=== PATIENT | male | born 1950 | race Caucasian/White ===

== ENCOUNTER → 2018-10-15 15:19 | Outpatient (CLI) | payer MEDICARE, SELFPAY ==
--- NOTE | 2018-10-15 15:27 | CT_ITS ---
STUDY: LOW DOSE CT LUNG CANCER SCREENING REASON FOR EXAM: Male, 68 years old. Previous smoker, quit 1 year ago, 90 pack-year history RADIATION DOSAGE (If Supplied By Facility): CTDIvol = ( 4.02 ) mGy, DLP = ( 157.53 ) mGycm TECHNIQUE: No contrast was administered. Low dose technique was utilized (average mAS-38 and kVp 120). 1.25 mm axial source images with a slice interval of 1.25-mm were reconstructed in lung windows. 2.5 mm axial source images with a slice interval of 2.5-mm were reconstructed in lung windows. 5.0 mm axial source images with a slice interval of 5.0-mm were reconstructed in soft tissue windows. Nodule measured using lung windows on PACS and/or independent workstation with automated measurement of minimum and maximum diameter. Nodule measurement reported as average diameter rounded to the nearest whole number. Growth is defined as an increase ins size of greater than 1.5 mm. COMPARISON: None. NODULES: Total lung nodules (excluding granulomas): 0 Emphysema: Not significant Endobronchial lesion: None Aorta: Normal caliber with mild atherosclerosis. Coronary arteries: None Heart: Normal size Pulmonary artery: Unremarkable for unopacified technique Mediastinal nodes: No adenopathy. Other chest and abdominal findings: Intermediate density rounded lesion of the right posterior upper abdomen measures 6.1 cm with peripheral eggshell type calcifications. This could be arising from the right adrenal gland or superior aspect of the right kidney. CT/Low Dose CT Lung Screening IMPRESSION: 1. Lung-RADS category 1 - Continue annual screening with LDCT in 12 months. 2. 6.1 cm mass of the right upper abdomen of unknown source or significance. If no comparison studies of the abdomen available, recommend additional evaluation with renal protocol CT/MRI. IMPORTANT NOTES FOR USE: ACR Lung-RADS Version 1.0 Assessment Categories Release Date: August 29, 2013 Category: Coded 0-4 bases on nodule(s) with highest degree of suspicion. Negative screen is defined as categories 1 and 2; a positive screen is defined as categories 3 and 4. Category 3 and 4A nodules that are unchanged on interval CT should be coded as category 2, and individuals returned to screening in 12 months. Category 4X: Category 3 or 4 nodules with additional imaging findings that increase the suspicion of lung cancer, such as spiculation, GGN that doubles in size in 1 year, enlarged lymph notes, etc. Category Modifiers: S (significant finding unrelated to lung cancer) and C (prior history of treated lung cancer) may be added to the 0-4 Lung-RADS Electronically Signed: Sudarshan Adams MD at 19:47 EDT , Service support ,
== END ==
PROVIDERS: Family Provider Nurse Practitioner Family; PCP Nurse Practitioner Family; Referring Provider Nurse Practitioner Family; Visit Provider Nurse Practitioner Family
DX: Z87.891 Personal history of nicotine dependence (principal)
CPT/HCPCS: G0297

== ENCOUNTER → 2018-10-26 08:00 | Outpatient (CLI) | payer MEDICARE, SELFPAY ==
[2018-10-26 08:33] LABS: Anion Gap 6 (5-15); BUN 15 mg/dL (7-18); BUN/Creat Ratio 13.6 RATIO (10-20); Chloride 106 mmol/L (98-107); EST Glomerular Filtration Rate 71 mL/min (>60); Est Glom Filt Rate - Afr Amer 86 mL/min (>60); Glucose 173 mg/dL (74-106); Potassium 4.2 mmol/L (3.5-5.1); Sodium Level 138 mmol/L (136-145)
--- NOTE | 2018-10-26 12:10 | CT_ITS ---
STUDY: CT ABDOMEN AND PELVIS WITH CONTRAST REASON FOR EXAM: Male, 68 years old. Abdominal mass RADIATION DOSAGE (If Supplied By Facility): CTDIvol = ( 18.72 ) mGy, DLP = ( 1332.11 ) mGycm TECHNIQUE: Transaxial images were obtained from the dome of the diaphragm to the symphysis pubis with oral contrast. 100ML IV/Oral Isovue 300 was administered. Sagittal and coronal images were reconstructed. Individualized dose optimization techniques were used for this CT. COMPARISON: CT from 10/15/2018 FINDINGS: The visualized lung bases are unremarkable. The visualized portions of the heart are within normal limits. Normal liver. Normal gallbladder and extrahepatic biliary system. Normal spleen. Normal pancreas. There is a mixed density mass arising from the right renal gland (as seen on coronal image 93). The mass measures 6.8 x 7.9 x 6.2 cm and is composed of both fat and soft tissue density. Surrounding the soft tissue density there is a thin periphery of calcification as well as some speckled calcification within the fat portion. Normal right kidney. Subcentimeter simple cyst of the upper left kidney as seen on image 41. No hydronephrosis. Normal visualized stomach. Normal small intestine. There are multiple colonic diverticula consistent with diverticulosis. The appendix is visualized and appears normal. There is diffuse atherosclerotic calcification of the abdominal aorta, without a demonstrated aneurysm. Normal inferior vena cava. Normal retroperitoneum. Normal urinary bladder. Prostate gland is enlarged. There is a left-sided inguinal hernia containing adipose tissue. There are diffuse degenerative changes of the visualized lumbar spine. CT/Abdomen/Pelvis WITH Contrast IMPRESSION: 1. Mixed density mass arising from the right adrenal gland (correlating to recent CT findings) compatible with myelolipoma, likely with component of old hemorrhage/blood product. Lesion is considered benign. 2. Prostamegaly. 3. Small fat-containing left inguinal hernia. Electronically Signed: Sudarshan Adams MD at 13:36 EDT , Service support ,
== END ==
PROVIDERS: Family Provider Nurse Practitioner Family; PCP Nurse Practitioner Family; Referring Provider Family Medicine; Visit Provider Family Medicine
DX: R19.00 Intra-abdominal and pelvic swelling, mass and lump, unspecified site (principal)
CPT/HCPCS: 36415; 74177; 80048; Q9967

== ENCOUNTER → 2020-04-16 14:36 | Outpatient (CLI) | payer MEDICARE, SELFPAY ==
--- NOTE | 2020-04-16 14:42 | CT_ITS ---
STUDY: CT ABDOMEN AND PELVIS WITH CONTRAST REASON FOR EXAM: Male, 69 years old. Right flank pain, hx adrenal mass RADIATION DOSAGE (If Supplied By Facility): CTDIvol = ( 17.02 ) mGy, DLP = ( 1201.41 ) mGycm TECHNIQUE: Transaxial images were obtained from the dome of the diaphragm to the symphysis pubis with oral contrast. Oral and amp; IV Readi-CAT and amp; 100mL Isovue-300 was administered. Sagittal and coronal images were reconstructed. Individualized dose optimization techniques were used for this CT. COMPARISON: Comparison is made with prior study dated 10/26/2018. FINDINGS: The visualized lung bases are unremarkable. Calcification of the coronary arteries. There is decreased attenuation of the liver consistent with steatosis. Borderline hepatomegaly. Normal gallbladder and extrahepatic biliary system. Normal spleen. Normal pancreas. Stable 5.9 cm x 5.4 cm x 6.2 cm mass in the right adrenal gland with rim-like calcification. This is unchanged. Normal right kidney. Normal left kidney. Normal visualized stomach. Normal small intestine. There are multiple colonic diverticula consistent with diverticulosis. The appendix is visualized and appears normal. There is scattered atherosclerotic calcification of the abdominal aorta, without a demonstrated aneurysm. Normal inferior vena cava. Normal retroperitoneum. Normal urinary bladder. There is enlargement of the prostate gland. It measures 5.3 cm x 4.7 cm. This causes indentation at the bladder base worse on the left side of the base of the bladder. Normal abdominal wall. There are diffuse degenerative changes of the visualized lumbar spine. CT/Abdomen/Pelvis WITH Contrast IMPRESSION: Stable right adrenal mass with peripheral calcification. Borderline hepatomegaly with diffuse fatty infiltration of the liver. Stable examination. Electronically Signed: Andrés Schmitt, at 15:27 EST , Service support ,
[2020-04-16 14:56] LABS: CREATININE FINGERSTICK 1.5 mg/dL (0.70-1.30)
== END ==
PROVIDERS: PCP Nurse Practitioner Family; Referring Provider Nurse Practitioner Family; Visit Provider Nurse Practitioner Family
DX: R10.9 Unspecified abdominal pain (principal); E27.8 Other specified disorders of adrenal gland
CPT/HCPCS: 74177; Q9967

== ENCOUNTER 2020-06-10 18:06 | Observation (INO) | payer MEDICARE, SELFPAY ==
[2020-06-10] VITALS (7 sets, daily range): BP systolic 139–172; BP diastolic 66–91; PULSE 82–104; RESP 16–18; TEMP 36.1–36.9; O2SAT 96–98; BMI 38.2; BMI 37.0; BMI 37.1
--- NOTE | 2020-06-10 18:21 | EKG12_ITS ---
Test Reason : CP Blood Pressure : / mmHG Vent. Rate : 097 BPM Atrial Rate : 097 BPM P-R Int : 198 ms QRS Dur : 102 ms QT Int : 332 ms P-R-T Axes : 027 032 100 degrees QTc Int : 421 ms Normal sinus rhythm Nonspecific ST and T wave abnormality Abnormal ECG Confirmed by MATILDE SANTO, GENTRY ([id number]), telegraph editor DYLON LEON ([id number]) on 06/12/2020 8:25:43 AM Referred By: ANDRIA/KEVYN Confirmed By:GENTRY CLAYTON MD
--- NOTE | 2020-06-10 18:21 | ED.VIS.GEN ---
History of Present Illness Chief Complaint: Chest Pain Informant: Patient, Family Narrative: 70-year-old male with history of diabetes, hypertension, hyperlipidemia, obesity, distant history of smoking 3 years ago presenting with chest pain which feels like pressure. He states that this week he has had some intermittent chest pains which feel like pressure when last for different amounts of time. Today he states he had chest pain since about 3 PM he states he was a little bit nauseous and had dyspepsia. Has not had fever, cough. He has no body aches or chills. He states his last stress test was over 20 years ago. Past Medical History - Allergies and Home Meds Allergies/Adverse Reactions: Allergies No Known Allergies Allergy (Verified 06/10/20 18:06) Past Medical History: - - Diabetes, hypertension, hyperlipidemia, BPH Lives: Spouse/ Significant Other Smoking Status: Former smoker Alcohol: None Drugs: None Review of Systems General: Denies: Chills, Fever, Sweats Eyes: Denies: Visual changes - bilaterally, Diplopia ENT: Denies: Rhinorrhea, Sore throat Cardiovascular: Reports: Chest pain. Denies: Palpitations, Heart racing Respiratory: Reports: Dyspnea. Denies: Cough, Sputum Gastrointestinal: Denies: Abdominal pain, Nausea Genitourinary: Denies: Dysuria, Hematuria Musculoskeletal: Denies: Myalgias, Arthralgias Skin: Denies: Rash, Abscess Neurological: Denies: Headache, Weakness Psych: Denies: Depression, Anxiety Physical Exam Vital Signs/Narrative: Vital Signs Temp Pulse Resp BP Pulse Ox 06/10/20 18:07 97.0 F L 104 H 17 172/91 H 96 Inital Vital Signs reviewed: Yes General: Obese, No Acute Distress Head: Normocephalic, Atraumatic Eyes: Perrl, EOMI ENT: Moist mucous membranes. Negative for: Nasal congestion Cardiovascular: Regular rate, Regular rhythm Respiratory: No distress, CTA bilaterally, Chest nontender Extremities: Nontender, No edema Skin: Normal color, No rash. Negative for: Cyanosis, Diaphoresis Neurological: Alert, Oriented x3, Cranial nerves II-XII grossly intact Psychological: Normal affect, Normal Mood Diagnostic/Tx/Re-eval - Rhythm Strip Rhythm Strip: Sinus Rhythm Rate: 97 - EKG Initial EKG Interpretation: Sinus Rhythm, Inverted T-Waves - V5, V6 - Medical Decision Making Patient presenting with chest pressure which has been intermittent throughout the week and has now been going on since about 3 PM. He describes it as about 5 of 10. He states he did get nauseous and his states he looked flushed. Patient's heart score is 7. Patient had EKG which was sinus rhythm with T wave inversions in V5 and V6 without a comparison EKG as interpreted by myself. Chest x-ray is negative for acute cardiopulmonary process as interpreted by myself. CBC, BMP are unremarkable. Troponin is negative. D-dimer is negative. Given patient's elevated heart score he will be admitted to the hospital for cardiac evaluation. Impression: 1. Chest pain ED Disposition - Plan for ED Patient:
[2020-06-10] MEDS: Aspirin 81 MG TAB.CHEW 324 MG PO (18:27)
--- NOTE | 2020-06-10 18:27 | RAD_ITS ---
STUDY: X-RAY CHEST REASON FOR EXAM: Male, 70 years old. CHEST HEAVINESS; LEFT SIDED CHEST PAIN AND PAIN DOWN LEFT ARM TECHNIQUE: AP COMPARISON: None. FINDINGS: EKG leads project over the chest. The lungs are clear and expanded. There is no demonstrated pleural abnormality. Normal size heart. Normal mediastinum and elio. Normal visualized pulmonary arteries. Normal visualized aortic arch and descending thoracic aorta. Normal visualized thoracic spine. Normal visualized ribs, clavicles, and shoulders. There is no demonstrated abnormality of the visualized soft tissue structures of the upper abdomen. RAD/Chest 1 View (Portable) IMPRESSION: Nonacute portable x-ray examination of the chest. Electronically Signed: Sudarshan Adams MD ([place]) at 18:47 EST , Service support ,
[2020-06-10 18:29] LABS: Absolute Lymphocyte Count 2.98 X10^3/uL (0.83-4.51); Absolute Neutrophil Count 5.1 X10^3/uL (2.0-7.7); Basophil# 0.07 X10^3/uL; Basophil% 0.8 % (0-1); Eosinophil# 0.33 X10^3/uL; Eosinophils% 3.6 % (0-5); Hematocrit 43.9 % (40-54); Hemoglobin 15.2 g/dL (13.0-16.5); Lymphocyte # 2.98 X10^3/ul (4.0); Lymphocyte % 32.5 % (19-41); Mean Corp Hgb Conc 34.6 g/dL (32-36); Mean Corpuscular Hgb 32.8 pg (27.0-32.0); Mean Corpuscular Volume 94.6 fL (80-94); Mean Platelet Vol. 9.6 fl (6.2-12.0); Monocyte# 0.72 X10^3/uL; Monocyte% 7.8 % (0-10); NRBC Flagged by Analyzer 0 % (0-5); Neutrophil # 5.05 X10^3/uL (2.7-7.7); Platelet Count 273 K/mm3 (150-450); RBC Distribution Width CV 12.7 % (11.6-14.6); Red Blood Count 4.64 M/mm3 (4.6-6.2); White Blood Count 9.2 K/mm3 (4.4-11.0)
[2020-06-10 18:44] LABS: Anion Gap 8 (5-15); BUN 13 mg/dL (7-18); BUN/Creat Ratio 12.3 RATIO (10-20); Calcium,Total 9.3 mg/dL (8.5-10.1); Chloride 103 mmol/L (98-107); Creatinine, Serum 1.06 mg/dL (0.70-1.30); D-Dimer Quantitative (DVT/PE) <= 0.27 FEU/ug/m (0.27-0.49); EST Glomerular Filtration Rate 74 mL/min (>60); Est Glom Filt Rate - Afr Amer 89 mL/min (>60); Estimated Creatinine Clearance 73.21 ml/min; Glucose 194 mg/dL (74-106); Potassium 3.5 mmol/L (3.5-5.1); Sodium Level 138 mmol/L (136-145)
--- NOTE | 2020-06-10 19:12 | HP.PCM_ITS ---
Problem List (1) Chest pain Status: Acute History of Present Illness Date of Admission: 06/10/20 Chief Complaint: chest pain The patient is a 70 year old M with a significant history of former smoker; hypertension; diabetes mellitus; hyperlipidemia; and alcoholism who presents to the emergency department with chest pain that started about 2 days before presentation. His chest pain span across his entire chest and it radiates to in between his scapula; and into his left arm. He described chest pain as heaviness. His chest pain is intermittent. His chest pain worsened a few hours before presentation. He denies any aggravating factors to the chest pain. Chest pain improved with rest. Associated with symptoms is nausea and headache. On the day of presentation patient also reported that he was belching. At the time of examination his chest pain was about a 1-2 in severity. His last stress test was about 20 years ago. Past Medical History Medical History: Medical History (Last Updated 06/10/20 @ 19:[address] Elmo Faria MD) Hypertension I10 Allergies No Known Allergies Allergy (Verified 06/10/20 18:06) Home Medications: Ambulatory Orders Medication Instructions Recorded Aspirin [Aspirin, Baby] 81 mg PO DAILY@0800 06/10/20 Cinnamon Bark [Cinnamon] 1,500 mg PO DAILY 06/10/20 Finasteride 5 mg PO DAILY 06/10/20 Losartan/Hydrochlorothiazide 1 ea PO DAILY 06/10/20 [Losartan-Hctz 100-12.5 mg Tab] Metformin HCl [Metformin HCl ER] 500 mg PO BID 06/10/20 [place]-3 Fatty Acids/Fish Oil [Fish 2 ea PO DAILY 06/10/20 Oil 1,000 mg Capsule] Simvastatin 20 mg PO QHS 06/10/20 Tamsulosin HCl 0.4 mg PO DAILY 06/10/20 Surgical History: herniorrhaphy, - - Many Mohs surgery for his skin cancer Lives: Spouse/ Significant Other Smoking Status: Former smoker Alcohol: None Drugs: None - *Family History Maternal History Items: Diabetes, - - His mother at the age of 93. Patient thinks that in her mother's old age her mother might have had a pacemaker. Paternal History Items: - - Denies knowledge of paternal medical history. Review of Systems Constitutional: Denies: Chills, Fever, Weight Change HEENT: Reports: Head Aches. Denies: Sinus Congestion, Sinus Drainage Cardiovascular: Reports: Chest Pain, Heaviness. Denies: Palpitations Respiratory: Denies: Cough, Shortness of breath at rest, Sputum production Gastrointestinal: Reports: Nausea. Denies: Abdominal Pain, Vomiting Genitourinary: Denies: Dysuria Musculoskeletal: Denies: Joint Pain, Joint Tenderness Skin: Denies: Rash, Wounds Neurological: Denies: Numbness, Tingling, Focal weakness Psychiatric: Denies: Anxiety, Depression, Homicidal Ideations, Suicidal Ideations Hematologic/ Lymphatic: Denies: Easy Bruising, Easy Bleeding VTE Information - Inpt Only VTE Present on Admission: No VTE Mechan Device Prophylaxis: SCD's VTE Pharm Prophylaxis ordered?: No Patient Problems: Active and Suspected Problems (Last Updated 06/10/20 @ 19:[address] Elmo Faria MD) Chest pain (Acute) - Physical Exam Vitals/I&O's: Vital Signs Temp Pulse Resp BP Pulse Ox 97.0 F L 104 H 17 172/91 H 96 06/10/20 18:07 06/10/20 18:07 06/10/20 18:07 06/10/20 18:07 06/10/20 18:07 Oxygen Delivery Method Room Air Weight: 128 kg Body Mass Index (BMI) 38.2 General: Alert, Oriented x3, Cooperative HEENT: Atraumatic, PERRLA, EOMI, Normocephalic Neck: Supple, No JVD, Negative Carotid Bruits Lungs: Clear to auscultation, Normal air movement, No rhonchi, No wheeze, No rales Cardiovascular: Regular rate, Regular Rhythm, Normal S1, Normal S2, No murmurs Abdomen: Bowel Sounds Present, Soft, Non Tender Extremities: No edema, Capillary Refill Less than 3 Seconds Skin: No rashes, No breakdown Musculoskeletal: No Tenderness to Palpation of Joints or Extremities Neurological: Cranial nerves II-XII grossly intact Psych/Mental Status: Normal Affect, Appropriate Laboratory Results 06/10/20 18:10: WBC 9.2, RBC 4.64, Hgb 15.2, Hct 43.9, MCV 94.6 H, MCH 32.8 H, MCHC 34.6, RDW Std Deviation 44.0 H, RDW Coeff of Fady 12.7, Plt Count 273, MPV 9.6, Immature Gran % (Auto) 0.300, Neut % (Auto) 55.0, Lymph % (Auto) 32.5, [place] % (Auto) 7.8, Eos % (Auto) 3.6, Baso % (Auto) 0.8, Absolute Neuts (auto) 5.1, Absolute Lymphs (auto) 2.98, Nucleated RBC % 0 06/10/20 18:10: D-Dimer Quant (PE/DVT) <= 0.27 06/10/20 18:10: Sodium 138, Potassium 3.5, Chloride 103, Carbon Dioxide 27.0, Anion Gap 8, BUN 13, Creatinine 1.06, Estim Creat Clear Calc 73.21, Est GFR (MDRD) Af Amer 89, Est GFR (MDRD) Non-Af 74, BUN/Creatinine Ratio 12.3, Glucose 194 H, Calcium 9.3, Troponin I < 0.015 Assessment/Plan All Active Problems (Last Updated 06/10/20 @ 19:[address] Elmo Faria MD) Chest pain (Acute) The patient is a 70 year old M with a significant history of former smoker; hypertension; diabetes mellitus; hyperlipidemia; and alcoholism who presents to the emergency department with chest pain . Chest pain Place on a monitored bed at PCU Radiologist impression of chest x-ray: Nonacute portable x-ray examination of the chest. Actual CXR image was independently visualized. No acute cardiopulmonary process was noted. Actual EKG tracing was independently visualized. EKG tracing showed T wave inversion in V5 to V6. ASA 81 mg p.o. daily ordered SL NTG 0.4 mg prn as needed for chest pain ordered Morphine as needed for pain ordered We will check lipid panel. Statin: On home statin; continued Initial troponin was negative. Serial cardiac enzymes ordered. Complains of knee problem so treadmill stress test could not be ordered. Chemical Stress test in the AM if the cardiac enzymes are negative Diabetes mellitus Patient with hyperglycemia on presentation Metformin held . Accu-Chek QA [facility] with correction scale insulin ordered. Alcoholism Drinks about 6-8 beers per day. Placed on CIWA protocol. Ativan. Folic acid and thiamine ordered. BPH Finasteride and tamsulosin ordered DVT prophylaxis. SCD while planning for cardiac work up for chest pain OBSV E&M: [id number] Initial observation care L2
--- NOTE | 2020-06-10 19:57 | EKG12_ITS ---
Test Reason : CP ADMISSION Blood Pressure : / mmHG Vent. Rate : 094 BPM Atrial Rate : 094 BPM P-R Int : 190 ms QRS Dur : 094 ms QT Int : 354 ms P-R-T Axes : 031 026 095 degrees QTc Int : 442 ms Normal sinus rhythm Normal ECG When compared with ECG of 10-JUN-2020 18:10, MANUAL COMPARISON REQUIRED, DATA IS UNCONFIRMED Confirmed by MATILDE SANTO, GENTRY ([id number]), editor trade journal DYLON LEON ([id number]) on 06/12/2020 8:29:51 AM Referred By: NICK Confirmed By:GENTRY CLAYTON MD
[2020-06-10] MEDS: Atorvastatin Calcium 10 MG Tablet PO (21:44)
--- NOTE | 2020-06-10 22:34 | PCS.PANDOC ---
PANDEMIC DOCUMENTATION INITIATED: Date: 06/10/20 Time: 19:51
[2020-06-10 23:56] LABS: Bedside Glucose 173 mg/dL (70-110)
[2020-06-11 03:00] VITALS: PULSE 76
[2020-06-11 05:49] VITALS: BP 146/94; PULSE 77; RESP 18; TEMP 36.9; O2SAT 95
--- NOTE | 2020-06-11 05:55 | EKG12_ITS ---
Test Reason : AM EKG Blood Pressure : / mmHG Vent. Rate : 076 BPM Atrial Rate : 076 BPM P-R Int : 194 ms QRS Dur : 098 ms QT Int : 380 ms P-R-T Axes : 044 032 089 degrees QTc Int : 427 ms Normal sinus rhythm Normal ECG When compared with ECG of 10-JUN-2020 20:06, MANUAL COMPARISON REQUIRED, DATA IS UNCONFIRMED Confirmed by MATILDE SANTO, GENTRY ([id number]), assistant film editor DYLON LEON ([id number]) on 06/12/2020 8:28:58 AM Referred By: NICK Confirmed By:GENTRY CLAYTON MD
[2020-06-11] MEDS: Losartan Potassium 100 MG Tablet PO (06:02)
[2020-06-11] MEDS: Aspirin E.C. 81 MG Tablet PO (06:02)
[2020-06-11 06:11] LABS: Bedside Glucose 149 mg/dL (70-110)
[2020-06-11 07:00] VITALS: PULSE 77
[2020-06-11 08:20] VITALS: BP 165/104; PULSE 84; RESP 18; TEMP 36.9; O2SAT 95
[2020-06-11 08:42] VITALS: O2SAT 95
--- NOTE | 2020-06-11 11:11 | STRESSREP_ITS ---
Stress Test Report Pharmacologic myocardial perfusion stress test. 70-year-old lady with a history of chest pain. Medications: Aspirin, Lipitor, omega-3. Stress protocol: Resting EKG demonstrates normal sinus rhythm with a rate of 81 bpm normal intervals are noted resting blood pressure is 162/82 mmHg. 0.4 mg of regadenoson was infused per usual protocol followed by rapid intravenous saline flush injection continuous EKG monitoring was performed. The maximum heart rate attained was 96 bpm which was 63% of maximum predicted heart rate the maximum wo rkload was 1 metabolic equivalent. At rest there were no ST or T wave changes noted to suggest abnormal flow reserve at peak infusion nonspecific ST-T wave changes were noted with no meet the criteria for ischemia. No clinical angina was noted. Myocardial perfusion protocol. 15.0 mCi of technetium 99m sestamibi was injected at rest. 0.4 mg of regadenoson was infused per usual protocol. At peak infusion 44.6 mCi of technetium 99m sestamibi was injected stress images were obtained stress and rest images were reconstructed and compared in the short axis vertical long horizontal long axis. Gated images were also obtained Perfusion SPECT analysis: Review of the stress images demonstrate normal uptake of tracer noted in all areas of the myocardium the resting images similarly demonstrate normal uptake of tracer noted in all areas of the myocardium. No areas of reversibility are noted suggest ischemia no previous infarct is noted. Gated SPECT analysis: The gated ejection fraction is 61%. Conclusion: Normal pharmacologic myocardial perfusion stress test. Preserved ejection fraction.
[2020-06-11] MEDS: Tamsulosin HCl 0.4 MG Capsule PO (11:18)
[2020-06-11] MEDS: Folic Acid 1 MG Tablet PO (11:18)
[2020-06-11] MEDS: Thiamine Hydrochloride 100 MG Tablet PO (11:18)
[2020-06-11] MEDS: hydroCHLOROthiazide 12.5mg 12.5 MG PO ×2 (11:18→11:19)
[2020-06-11] MEDS: Finasteride 5 MG Tablet PO (11:19)
[2020-06-11] MEDS: Omega-3 Acid Ethyl Esters 1 GM Capsule 2 GM PO (11:19)
[2020-06-11 11:35] LABS: Bedside Glucose 168 mg/dL (70-110)
--- NOTE | 2020-06-11 11:57 | PCM.DC ---
- Discharge Diagnoses Current Active Problems: Current Active and Chronic Problems (Last Updated 06/10/20 @ 19:[address] Elmo Faria MD) Chest pain (Acute) You will use the following diet at home:: Calorie/Carbohydrate Controlled (specify 1200, 1400, etc) - 1800 Your food should be the consistency of: Regular Discharge Activity: Return to Normal Activity Allergies/Adverse Reactions: Allergies No Known Allergies Allergy (Verified 06/10/20 20:03) Medications to take at Discharge Aspirin [Aspirin, Baby] 81 mg PO DAILY@0800 06/10/20 Cinnamon Bark [Cinnamon] 1,500 mg PO DAILY 06/10/20 Finasteride 5 mg PO DAILY 06/10/20 Losartan/Hydrochlorothiazide [Losartan-Hctz 100-12.5 mg Tab] 1 ea PO DAILY 06/10/20 Metformin HCl [Metformin HCl ER] 500 mg PO BID 06/10/20 [place]-3 Fatty Acids/Fish Oil [Fish Oil 1,000 mg Capsule] 2 ea PO DAILY 06/10/20 Simvastatin 20 mg PO QHS 06/10/20 Tamsulosin HCl 0.4 mg PO DAILY 06/10/20 Primary Care Physician: Dariel Reyna COMPUTER HELP DESK REPRESENTATIVE, COMPUTER HELP DESK REPRESENTATIVE-C [Primary Care Provider] - Please follow up with your Primary Care Physician in: in 1-2 weeks Test Results: Test results from this visit will be discussed in further detail at your follow-up appointment, if applicable. Proposed Discharge Date: 06/11/20
--- NOTE | 2020-06-11 12:00 | PCM.DC.SUM ---
Discharge Date and Diagnosis - Problem List Patient Problems: Active and Suspected Problems (Last Updated 06/10/20 @ 19:[address] Elmo Faria MD) Chest pain (Acute) Date of Admission: 06/10/20 Date of Discharge: 06/11/20 - Primary Discharge Diagnosis Acute Problems: Active Problems (Last Updated 06/10/20 @ 19:[address] Elmo Faria MD) Chest pain (Acute) Hospital Course and Treatment Imaging Results: 06/11/20 05:55 Nuclear Stress Test - Chemical [NM] AM (NON MEDS) Summary of Care Provided: The patient is a 70 year old M who comorbidities including essential hypertension, diabetes mellitus type 2, dyslipidemia who presented with chest pain 1. Chest pain ?Patient admitted to monitored bed to rule out PR with serial cardiac enzymes. Subsequently underwent a nuclear stress test which was negative for stress-induced ischemia 2. Diabetes mellitus type II -patient's oral hypoglycemics held. -Placed on , Accu-Cheks a.c. and at bedtime and covered with sliding scale insulin 3. Hypertension - Blood pressure controlled, home medications continued with dose adjustment as needed 4. Morbid obesity ?With BMI of 37.1 weight loss advised 5. Dyslipidemia -Patient is on statin therapy, continued at home dose 6. BPH ?Patient is on tamsulosin Patient Problems: Active and Suspected Problems (Last Updated 06/10/20 @ 19:[address] Elmo Faria MD) Chest pain (Acute) - Physical Exam Vitals/I&O's: Vital Signs Temp Pulse Resp BP Pulse Ox 98.4 F 84 18 165/104 H 95 06/11/20 08:20 06/11/20 08:20 06/11/20 08:20 06/11/20 08:20 06/11/20 08:42 Oxygen Delivery Method Room Air Weight: 124 kg Body Mass Index (BMI) 37.0 Intake and Output for Last 24 Hours 06/09/20 06/10/20 06/11/20 23:59 23:59 23:59 Intake Total 240 / 240 60 / 60 Balance 240 / 240 60 / 60 General: Alert HEENT: Atraumatic Lungs: Diminished Cardiovascular: Regular rate Extremities: No clubbing Neurological: Neuro grossly intact Laboratory Results 06/10/20 18:10: WBC 9.2, RBC 4.64, Hgb 15.2, Hct 43.9, MCV 94.6 H, MCH 32.8 H, MCHC 34.6, RDW Std Deviation 44.0 H, RDW Coeff of Fady 12.7, Plt Count 273, MPV 9.6, Immature Gran % (Auto) 0.300, Neut % (Auto) 55.0, Lymph % (Auto) 32.5, [place] % (Auto) 7.8, Eos % (Auto) 3.6, Baso % (Auto) 0.8, Absolute Neuts (auto) 5.1, Absolute Lymphs (auto) 2.98, Nucleated RBC % 0 06/10/20 18:10: D-Dimer Quant (PE/DVT) <= 0.27 06/10/20 18:10: Sodium 138, Potassium 3.5, Chloride 103, Carbon Dioxide 27.0, Anion Gap 8, BUN 13, Creatinine 1.06, Estim Creat Clear Calc 73.21, Est GFR (MDRD) Af Amer 89, Est GFR (MDRD) Non-Af 74, BUN/Creatinine Ratio 12.3, Glucose 194 H, Calcium 9.3, Troponin I < 0.015 06/10/20 20:50: Troponin I < 0.015 06/10/20 23:48: POC Glucose 173 H 06/10/20 23:50: Troponin I < 0.015 06/11/20 06:00: POC Glucose 149 H 06/11/20 11:07: POC Glucose 168 H Current Medications Acetaminophen (Acetaminophen 325 Mg Tablet) 650 mg PO Q6H PRN PRN PRN Reason: Pain Score 1-10/Temp > 100.7 F Al Hydroxide/Mg Hydroxide (Mag Hydrox/Al Hydrox/Simeth 30 Ml Udc) 30 ml PO Q6H PRN PRN PRN Reason: Gastric Burning Aspirin (Aspirin E.C. 81 Mg Tablet) 81 mg PO DAILY@0800 [facility] Last Admin: 06/11/20 06:02 Dose: 81 mg Documented by: Atorvastatin Calcium (Atorvastatin Calcium 10 Mg Tablet) 10 mg PO QHS [facility] Last Admin: 06/10/20 21:44 Dose: 10 mg Documented by: Dextrose (Dextrose 50%-Water 25 Gm/50 Ml Disp.Syrin) 0 gm IV X1 PRN; Protocol PRN Reason: Hypoglycemia Dicyclomine HCl (Dicyclomine 10 Mg Capsule) 20 mg PO Q6H PRN PRN PRN Reason: abdominal discomfort Finasteride (Finasteride 5 Mg Tablet) 5 mg PO DAILY [facility] Last Admin: 06/11/20 11:19 Dose: 5 mg Documented by: Folic Acid (Folic Acid 1 Mg Tablet) 1 mg PO DAILY@0800 [facility] Last Admin: 06/11/20 11:18 Dose: 1 mg Documented by: Gabapentin (Gabapentin 300 Mg Capsule) 300 mg PO Q8H PRN PRN PRN Reason: moderate to severe anxiety Glucagon (Glucagon 1 Mg/Ml Syringe) 1 mg IM .X1 PRN PRN Reason: Hypoglycemia Hydrochlorothiazide (Hydrochlorothiazide 12.5mg) 12.5 mg PO DAILY [facility] Last Admin: 06/11/20 11:19 Dose: 12.5 mg Documented by: Hydroxyzine Pamoate (Hydroxyzine Lizette 25 Mg Capsule) 50 mg PO Q4H PRN PRN PRN Reason: mild anxiety Insulin Human Lispro (Insulin Lispro 100 Unit/Ml Insuln.Pen) 0 unit SC Q6 [facility]; Protocol Last Admin: 06/11/20 11:22 Dose: Not Given Documented by: Loperamide HCl (Loperamide 2 Mg Capsule) 2 mg PO Q4H PRN PRN PRN Reason: LOOSE STOOLS Lorazepam (Lorazepam 1 Mg Tablet) 2 mg PO Q2H PRN PRN; Protocol PRN Reason: CIWA score > 8 but <15 Lorazepam (Lorazepam 1 Mg Tablet) 2 mg PO UD PRN; Protocol PRN Reason: CIWA score >/=15. Lorazepam (Lorazepam 2 Mg/Ml Syringe) 2 mg IV Q2H PRN PRN; Protocol PRN Reason: CIWA score > 8 but <15 Lorazepam (Lorazepam 2 Mg/Ml Syringe) 2 mg IV UD PRN; Protocol PRN Reason: CIWA score >/=15. Losartan Potassium (Losartan Potassium 100 Mg Tablet) 100 mg PO DAILY [facility] Last Admin: 06/11/20 06:02 Dose: 100 mg Documented by: Melatonin (Melatonin 3 Mg Tablet) 3 mg PO QHS PRN PRN PRN Reason: INSOMNIA Morphine Sulfate (Morphine 2 Mg/Ml Syringe) 2 mg IV Q3H PRN PRN PRN Reason: Pain Score 6-10 Nitroglycerin (Nitroglycerin (Inpatient Use) 0.4 Mg Tab.Subl) 0.4 mg SUBLINGUAL Q5M PRN PRN Reason: CARDIAC/CHEST PAIN Egjva-0-Zmkt Ethyl Esters ([place]-3 Acid Ethyl Esters 1 Gm Capsule) 2 gm PO DAILY [facility] Last Admin: 06/11/20 11:19 Dose: 2 gm Documented by: Ondansetron HCl (Ondansetron 4 Mg/2 Ml Vial) 4 mg IV Q8H PRN PRN PRN Reason: NAUSEA/VOMITING Ondansetron HCl (Ondansetron 8 Mg Tablet) 8 mg PO Q8H PRN PRN PRN Reason: NAUSEA Senna/Docusate Sodium (Senna/Docusate Sodium 1 Tablet) 2 tablet PO BID PRN PRN PRN Reason: Constipation Sodium Chloride (0.9% Saline Lock 10 Ml Syringe) 10 - 40 ml IV UD PRN PRN Reason: SALINE FLUSH Tamsulosin HCl (Tamsulosin Hcl 0.4 Mg Capsule) 0.4 mg PO DAILY [facility] Last Admin: 06/11/20 11:18 Dose: 0.4 mg Documented by: Thiamine HCl (Thiamine Hydrochloride 100 Mg Tablet) [facility] Last Admin: 06/11/20 11:18 Dose: 100 mg Documented by: Trazodone HCl (Trazodone 100 Mg Tablet) 100 mg PO QHS PRN PRN Reason: INSOMNIA Discharge Diet: 1800 Calorie Control Diet Discharge Activity: Return to Normal Activity Home Medications: Medications to take at Discharge Aspirin [Aspirin, Baby] 81 mg PO DAILY@0800 06/10/20 Cinnamon Bark [Cinnamon] 1,500 mg PO DAILY 06/10/20 Finasteride 5 mg PO DAILY 06/10/20 Losartan/Hydrochlorothiazide [Losartan-Hctz 100-12.5 mg Tab] 1 ea PO DAILY 06/10/20 Metformin HCl [Metformin HCl ER] 500 mg PO BID 06/10/20 [place]-3 Fatty Acids/Fish Oil [Fish Oil 1,000 mg Capsule] 2 ea PO DAILY 06/10/20 Simvastatin 20 mg PO QHS 06/10/20 Tamsulosin HCl 0.4 mg PO DAILY 06/10/20 Primary Care Physician: Dariel Reyna FOSTER CARE THERAPIST, FOSTER CARE THERAPIST-C [Primary Care Provider] - Please follow up with your Primary Care Physician in: in 1-2 weeks Disposition: Home Minutes spent on discharge:: 35 Patient Condition:: Stable Medical Necessity - Tobacco Use Smoking Status: Former smoker Meaningful Use Info Meaningful Use Diagnoses (Choose all that apply): None applicable OBSV E&M: 85009 Observation care discharge
--- NOTE | 2020-06-11 12:29 | PHA.DC.MR ---
Pharmacy Service has performed discharge medication reconciliation for this patient. No new medications at the time of discharge medication review. Medications reviewed are from previously reported home medications. Home Medications Aspirin [Aspirin, Baby] 81 mg PO DAILY@0800 06/10/20 Cinnamon Bark [Cinnamon] 1,500 mg PO DAILY 06/10/20 Finasteride 5 mg PO DAILY 06/10/20 Losartan/Hydrochlorothiazide [Losartan-Hctz 100-12.5 mg Tab] 1 ea PO DAILY 06/10/20 Metformin HCl [Metformin HCl ER] 500 mg PO BID 06/10/20 [place]-3 Fatty Acids/Fish Oil [Fish Oil 1,000 mg Capsule] 2 ea PO DAILY 06/10/20 Simvastatin 20 mg PO QHS 06/10/20 Tamsulosin HCl 0.4 mg PO DAILY 06/10/20 The patient's discharge medication list was reviewed for discrepancies and discrepancies were resolved.
== END 2020-06-11 11:58 | disposition home or self-care (01) ==
LOC: ED 18:59 → PCU 19:16
PROVIDERS: Admitting Provider Hospitalist; Emergency Provider Student in an Organized Health Care Education/Training Program; PCP Nurse Practitioner Family; Visit Provider Internal Medicine
DX: R07.89 Other chest pain (principal); N40.0 Benign prostatic hyperplasia without lower urinary tract symptoms; I10 Essential (primary) hypertension; E66.01 Morbid (severe) obesity due to excess calories; E78.5 Hyperlipidemia, unspecified; F10.20 Alcohol dependence, uncomplicated; E11.65 Type 2 diabetes mellitus with hyperglycemia; Z79.899 Other long term (current) drug therapy; Z79.82 Long term (current) use of aspirin; Z87.891 Personal history of nicotine dependence; Z79.84 Long term (current) use of oral hypoglycemic drugs; Z68.38 Body mass index [BMI] 38.0-38.9, adult
CPT/HCPCS: 36415; 71045; 78452; 80048; 82962; 84484; 85025; 85379; 93005; 93017; 99218; 99285; A9500; A4216; G0378; J2785

== ENCOUNTER 2020-07-13 07:39 | Day surgery (SDC) | payer MEDICARE, SELFPAY ==
[2020-06-10 20:01] VITALS: BMI 37.0
[2020-07-06 11:27] LABS: International Normalized Ratio 1.1; Prothrombin Time (Protime)PT. 13.6 SECONDS (11.7-14.9)
[2020-07-06 11:28] LABS: Partial Thromboplast Time 26.7 Seconds (24.1-36.2)
[2020-07-06 11:35] LABS: Hemoglobin A1c 6.4 % (3.8-5.6)
[2020-07-06 11:54] LABS: AST(SGOT) 43 U/L (15-37); Alanine Aminotransfer ALT/SGPT 65 U/L (16-61); Albumin, Serum 4.4 g/dL (3.2-5.0); Alkaline Phosphatase 69 U/L (45-117); Bilirubin, Direct 0.21 mg/dL (0.00-0.30); Globulin 3.1 g/dL (2.2-4.2); Protein, Total 7.5 g/dL (6.4-8.2)
[2020-07-13] VITALS (13 sets, daily range): BP systolic 132–174; BP diastolic 72–102; PULSE 69–91; RESP 16–18; TEMP 36.3–37.2; O2SAT 94–100; BMI 36.9
--- NOTE | 2020-07-13 | PROS_PTH ---
PATIENT: CAYETANO BRIONES LOC: [facility] [place] U#:[id number] AGE/SX: 70/M ROOM: RE07/13/[address]: Dr. Jose Owens MD : 1950 BED: DIS: 07/14/2020 SPEC #: [id number] RECD: 07/13/20 15:16 STATUS: JADON REAna Luisa #: [id number] JAY: 07/13/20 00:[address]: Jose Owens DEPT: SURGICAL PATHOLOGY RECD BY: Charly Beauchamp ENTERED: 07/16/20 08:03 SP TYPE: TURP OTHR DR: Dariel Reyna, MEDICAL ASSISTANT OB GYN-C Tissues: Prostate, NOS Procedures: Surgery Specimen Level IV HEADER OPERATION: Cysto, TUR prostate, Olympus PRE-OP DIAGNOSIS: BPH with obstructive/lower urinary tract symptoms TISSUE SUBMITTED: Prostate tissue MICROSCOPIC DIAGNOSIS Prostate, transurethral resection: Benign nodular hyperplasia, glandular and stromal types. Focal chronic inflammation. Focal benign histiocytic reaction. No evidence of malignancy. AM:sierra 07/17/2020 MICROSCOPIC DESCRIPTION Slides are reviewed. GROSS DESCRIPTION Received is one container labeled with the patient's name and designated prostate tissue. The specimen consists of multiple irregular fragments of pink-gandhi, rubbery, soft tissue that in aggregate weigh 30.5 gm and measure in aggregate 6.5 x 6.5 x 2 cm. The entire specimen is submitted in ten cassettes. / AM:sierra 07/16/20 TC:3 CPT: 07463
[2020-07-13] MEDS: Lactated Ringers 1,000 ML 100 ML IV ×2 (08:27→12:01)
[2020-07-13 08:46] LABS: Bedside Glucose 169 mg/dL (70-110)
--- NOTE | 2020-07-13 09:28 | PCM.HP.STD ---
Problem List (1) BPH with obstruction/lower urinary tract symptoms Status: Acute History of Present Illness Date of Admission: 07/13/20 Chief Complaint: BPH with obstruction The patient is a 70 year old male with a very large obstructive prostate with plan to proceed with a transurethral resection of the prostate to alleviate obstructive voiding symptoms. Past Medical History Medical History: Medical History (Last Reviewed 07/13/20 @ 09:[address] Jose Owens MD) Hypertension I10 Allergies No Known Allergies Allergy (Verified 07/13/20 08:01) Home Medications: Ambulatory Orders Medication Instructions Recorded Aspirin [Aspirin, Baby] 81 mg PO DAILY@0800 06/10/20 Cinnamon Bark [Cinnamon] 1,000 mg PO BID 06/10/20 Finasteride 5 mg PO DAILY 06/10/20 Losartan/Hydrochlorothiazide 1 ea PO DAILY 06/10/20 [Losartan-Hctz 100-12.5 mg Tab] Metformin HCl [Metformin HCl ER] 500 mg PO BID 06/10/20 [place]-3 Fatty Acids/Fish Oil [Fish 1 ea PO DAILY 06/10/20 Oil 1,000 mg Capsule] Simvastatin 20 mg PO QHS 06/10/20 Tamsulosin HCl 0.4 mg PO DAILY 06/10/20 Cholecalciferol (Vitamin D3) 25 mcg PO DAILY 07/06/20 [Vitamin D3] Naproxen 500 mg PO Q12H 07/06/20 Omeprazole 40 mg PO DAILY 07/06/20 Zinc Gluconate [Zinc] 50 mg PO QODAY 07/06/20 Surgical History: herniorrhaphy, - - Many Mohs surgery for his skin cancer Lives: Spouse/ Significant Other Smoking Status: Former smoker Tobacco Use: Non-smoker Alcohol: None Drugs: None - *Family History Maternal History Items: Diabetes, - - His mother at the age of 93. Patient thinks that in her mother's old age her mother might have had a pacemaker. Paternal History Items: - - Denies knowledge of paternal medical history. Review of Systems Constitutional: Denies: Chills, Fever, Weight Change HEENT: Denies: Head Aches, Sinus Congestion, Sinus Drainage Cardiovascular: Denies: Chest Pain, Palpitations Respiratory: Denies: Cough, Shortness of breath at rest, Sputum production Gastrointestinal: Denies: Abdominal Pain, Nausea, Vomiting Genitourinary: Reports: Frequency, Hesitancy, Nocturia, Retention. Denies: Dysuria Musculoskeletal: Denies: Joint Pain, Joint Tenderness Skin: Denies: Rash, Wounds Neurological: Denies: Numbness, Tingling, Focal weakness Psychiatric: Denies: Anxiety, Depression, Homicidal Ideations, Suicidal Ideations Hematologic/ Lymphatic: Denies: Easy Bruising, Easy Bleeding VTE Information - Inpt Only VTE Present on Admission: No VTE Mechan Device Prophylaxis: SCD's - Physical Exam Vitals/I&O's: Vital Signs Temp Pulse Resp BP Pulse Ox 97.7 F L 87 16 165/94 H 95 07/13/20 08:22 07/13/20 08:22 07/13/20 08:22 07/13/20 08:22 07/13/20 08:22 Oxygen Delivery Method Room Air Weight: 123.6 kg Body Mass Index (BMI) 36.9 General: Alert, Oriented x3, Cooperative HEENT: Atraumatic, PERRLA, EOMI, Normocephalic Neck: Supple, No JVD, Negative Carotid Bruits Lungs: Clear to auscultation, Normal air movement Cardiovascular: Regular rate, No murmurs Abdomen: Bowel Sounds Present, Soft, Non Tender Extremities: No edema, Capillary Refill Less than 3 Seconds Skin: No rashes, No breakdown Musculoskeletal: No Tenderness to Palpation of Joints or Extremities Neurological: Cranial nerves II-XII grossly intact Psych/Mental Status: Normal Affect, Appropriate Microbiology Past 72 Hours 07/12/20 09:20 Interface Orders SARS-CoV-2 Antigen (Rapid) - Final Laboratory Results 07/13/20 08:14: POC Glucose 169 H Current Medications Lactated Ringer's () 1,000 mls @ 100 mls/hr IV .Q10H [facility] Last Admin: 07/13/20 08:27 Dose: 100 mls/hr Documented by: Assessment/Plan All Active Problems (Last Reviewed 07/13/20 @ 09:[address] Jose Owens MD) BPH with obstruction/lower urinary tract symptoms (Acute) Plan to proceed with a transurethral resection of the prostate.
--- NOTE | 2020-07-13 09:37 | DCINST_ITS ---
Discharge Diet: Light diet - advance as tolerated Call your doctor if you observe: Fever of 101 or Higher, Uncontrolled pain Instructions: Transurethral Resection of the Prostate (TURP): Home Recovery Allergies/Adverse Reactions: Allergies No Known Allergies Allergy (Verified 07/13/20 08:01) Medications to take at Discharge Aspirin [Aspirin, Baby] 81 mg PO DAILY@0800 06/10/20 Cinnamon Bark [Cinnamon] 1,000 mg PO BID 06/10/20 Finasteride 5 mg PO DAILY 06/10/20 Losartan/Hydrochlorothiazide [Losartan-Hctz 100-12.5 mg Tab] 1 ea PO DAILY 06/10/20 Metformin HCl [Metformin HCl ER] 500 mg PO BID 06/10/20 [place]-3 Fatty Acids/Fish Oil [Fish Oil 1,000 mg Capsule] 1 ea PO DAILY 06/10/20 Simvastatin 20 mg PO QHS 06/10/20 Tamsulosin HCl 0.4 mg PO DAILY 06/10/20 Cholecalciferol (Vitamin D3) [Vitamin D3] 25 mcg PO DAILY 07/06/20 Naproxen 500 mg PO Q12H 07/06/20 Omeprazole 40 mg PO DAILY 07/06/20 Zinc Gluconate [Zinc] 50 mg PO QODAY 07/06/20 Ciprofloxacin [Cipro] 500 mg PO BID #10 tab 07/13/20 Hydrocodone Bitart/Apap 5-325 [[place] 5MG-325MG] 1 tab PO Q4H PRN PRN 7 Days #14 tab 07/13/20 The following prescriptions were given: Ciprofloxacin [Cipro] 500 mg PO BID #10 tab Prescription Printed Hydrocodone Bitart/Apap 5-325 [[place] 5MG-325MG] 1 tab PO Q4H PRN PRN 7 Days #14 tab PRN Reason: Pain Prescription Printed Primary Care Physician: Dariel Reyna ACCOUNTS PAYABLE SUPERVISOR, ACCOUNTS PAYABLE SUPERVISOR-C [Primary Care Provider] - Test Results: Test results from this visit will be discussed in further detail at your follow- up appointment, if applicable. Please Follow Up With: Jose Owens MD When: in 2 weeks, please call to make an appointment.
--- NOTE | 2020-07-13 12:34 | OP.PCM_ITS ---
Problem List (1) BPH with obstruction/lower urinary tract symptoms Status: Acute Report of Operation Date of Procedure: 07/13/20 Pre-Operative Diagnosis: BPH with obstruction Post-Operative Diagnosis: Same Surgery/Procedure Performed:: Transurethral resection of the prostate Description of Surgical Findings:: In the preoperative setting I discussed with the patient how the surgery would be done with expect afterwards. We discussed how a prostate resection is done and we discussed the risk of the surgery including, bleeding, infection, retrograde ejaculation, changes with ejaculation or intercourse,. We discussed the possibility that the resection of the prostate may not alleviate his urinary symptoms. We discussed the small risk of developing scar tissue along the urethral channel and strictures. We also discussed the chance of the prostate could grow back and he may need further surgery or treatment in the future for prostate problems. Patient was taken back to the operating room, timeout procedure was performed, he was identified and marked and placed on the operating room table. He underwent general anesthesia. He was placed in dorsolithotomy position. Penis and testicles were prepped and draped in usual sterile fashion. Went into the bladder using the visual obturator with a resectoscope. Once inside the bladder identified the right and left ureteral orifice. I then identified the prostate and the anatomy of the prostate. I marked out the area of the sphincter and the verumontanum was identified. I then proceeded with the prostate resection first resected the median lobe. And then resected the right lobe of the prostate. Then to resect the left lobe of the prostate. I then resected the apical tissue of the prostate. Made sure that there was no injury to the sphincter or the verumontanum was still intact. At the end of the resection all the chips were Ellik out of the bladder. I then identified the left and right ureteral orifice and these were confirmed to be in good position and effluxing and not injured. The resectoscope was removed, a 22 Kosovan catheter was placed into the bladder on continuous irrigation. And the urine was fairly light pink color and draining normally. He was taken back to the PACU in good condition. Type of Anesthesia:: General Drains: 22fr 3 way - Admit VTE Documentation VTE Present on Admission: No VTE Mechan Device Prophylaxis: SCD's
[2020-07-13 13:36] LABS: Bedside Glucose 118 mg/dL (70-110)
[2020-07-13] MEDS: Tamsulosin HCl 0.4 MG Capsule PO (16:27)
[2020-07-13] MEDS: Pantoprazole Sodium 40 MG Tablet PO (16:27)
[2020-07-13] MEDS: metFORMIN (XR) 500 MG Tablet PO (16:28)
[2020-07-13] MEDS: Finasteride 5 MG Tablet PO (16:29)
[2020-07-13 16:35] LABS: Bedside Glucose 179 mg/dL (70-110)
[2020-07-13] MEDS: 0.9% Normal Saline 1,000 ML 75 ML IV (18:42)
[2020-07-13] MEDS: Ciprofloxacin 400 MG/200 ML BAG 200 MG IV (21:08)
[2020-07-13] MEDS: Atorvastatin Calcium 10 MG Tablet PO (21:08)
[2020-07-13] MEDS: Docusate Sodium 100 MG Capsule PO (21:08)
[2020-07-14 02:20] VITALS: BP 140/78; PULSE 75; RESP 18; TEMP 36.5; O2SAT 96
[2020-07-14 07:20] LABS: Bedside Glucose 165 mg/dL (70-110)
[2020-07-14 08:52] VITALS: BP 159/89; PULSE 92; RESP 18; TEMP 36.8; O2SAT 97
[2020-07-14] MEDS: Losartan Potassium 100 MG Tablet PO (08:56)
[2020-07-14] MEDS: Pantoprazole Sodium 40 MG Tablet PO (08:56)
[2020-07-14] MEDS: Aspirin 81 MG TAB.CHEW PO (08:56)
[2020-07-14] MEDS: metFORMIN (XR) 500 MG Tablet PO (08:56)
[2020-07-14] MEDS: Docusate Sodium 100 MG Capsule PO (08:56)
[2020-07-14] MEDS: hydroCHLOROthiazide 12.5mg 12.5 MG PO (08:57)
[2020-07-14] MEDS: Finasteride 5 MG Tablet PO (08:57)
[2020-07-14] MEDS: Ciprofloxacin 400 MG/200 ML BAG 200 MG IV (09:01)
[2020-07-14 11:55] VITALS: BP 142/80; PULSE 72; RESP 18; TEMP 36.7; O2SAT 97
== END 2020-07-14 11:52 | disposition home or self-care (01) ==
LOC: SDC 07:40 → AC 07:40 → MS3 10:30
PROVIDERS: Anesthesiology; PCP Nurse Practitioner Family; Referring Provider Urology; Visit Provider Urology
PROC: (CPT 52601; principal; 2020-07-13 09:30)
DX: N13.8 Other obstructive and reflux uropathy (principal); N40.1 Benign prostatic hyperplasia with lower urinary tract symptoms; Z20.828 Contact with and (suspected) exposure to other viral communicable diseases; I10 Essential (primary) hypertension; Z79.899 Other long term (current) drug therapy; Z79.82 Long term (current) use of aspirin; Z79.84 Long term (current) use of oral hypoglycemic drugs; Z87.891 Personal history of nicotine dependence; E78.00 Pure hypercholesterolemia, unspecified; K21.9 Gastro-esophageal reflux disease without esophagitis; J45.909 Unspecified asthma, uncomplicated
CPT/HCPCS: 52601; 36415; 80076; 82962; 83036; 85610; 85730; 87426; 88305; 99251; C9803; J7030; J7120; G0463; J0744

== ENCOUNTER → 2022-11-18 | Outpatient (CLI) | payer MEDICARE, SELFPAY ==
[2022-11-18 09:10] LABS: Vitamin D,25 Hydroxy 37.5 ng/mL
[2022-11-18 09:14] LABS: AST(SGOT) 31 U/L (15-37); Alanine Aminotransfer ALT/SGPT 43 U/L (16-61); Albumin, Serum 3.9 g/dL (3.2-5.0); Alkaline Phosphatase 74 U/L (45-117); Anion Gap 4 (5-15); BUN 17 mg/dL (7-18); BUN/Creat Ratio 14.5 RATIO (10-20); Calcium,Total 8.9 mg/dL (8.5-10.1); Chloride 108 mmol/L (98-107); Cholesterol 144 mg/dL (200); Creatinine, Serum 1.17 mg/dL (0.70-1.30); EST Glomerular Filtration Rate 65 mL/min (>60); Est Glom Filt Rate - Afr Amer 79 mL/min (>60); Globulin 3.8 g/dL (2.2-4.2); Glucose 151 mg/dL (74-106); High Density Lipoprotein 59 mg/dL; PSA,Total - Annual Screen 1.62 ng/mL (0.00-4.00); Protein, Total 7.7 g/dL (6.4-8.2); Sodium Level 139 mmol/L (136-145); Triglycerides 129 mg/dL; Very Low Density Lipoprotein 26 mg/dL (5-40)
[2022-11-18 09:40] LABS: Hemoglobin A1c 6.2 % (3.8-5.6)
== END | disposition home or self-care (01) ==
LOC: LAB 08:08
PROVIDERS: PCP Nurse Practitioner Family; Referring Provider Nurse Practitioner Family; Visit Provider Nurse Practitioner Family
DX: E11.9 Type 2 diabetes mellitus without complications (principal); I10 Essential (primary) hypertension; E78.5 Hyperlipidemia, unspecified; E55.9 Vitamin D deficiency, unspecified; Z12.5 Encounter for screening for malignant neoplasm of prostate
CPT/HCPCS: 36415; 80053; 80061; 82306; 83036; 84153; G0103

== ENCOUNTER → 2023-03-24 | Outpatient (CLI) | payer MEDICARE, SELFPAY ==
--- NOTE | 2023-03-24 07:05 | CT_ITS ---
PROCEDURE: CT LEFT KNEE WITHOUT CONTRAST REASON FOR EXAM: Male, 72 years old. Preoperative planning for the MakoPl[employer] Robotic knee surgery. Knee pain. TECHNIQUE: Transaxial CT of the hip, knee and ankle were obtained. Coronal and sagittal reconstruction images of the knee were provided. Individualized dose optimization techniques were used for this CT. COMPARISON: None. FINDINGS: Standard protocol for the preoperative planning for the MakoPlasty robotic knee surgery was performed. Mild arthrosis of the left hip. Moderate tricompartmental arthrosis of the knee. Mild arthrosis of the tibiotalar joint. CT/Extremity Lower without Contra IMPRESSION: Preoperative MakoPlasty Robotic knee surgical CT evaluation with findings as described above. Electronically Signed: Avinash Ventura MD at 12:24 EST ,
== END | disposition home or self-care (01) ==
PROVIDERS: PCP Nurse Practitioner Family; Referring Provider Student in an Organized Health Care Education/Training Program; Visit Provider Student in an Organized Health Care Education/Training Program
DX: M17.12 Unilateral primary osteoarthritis, left knee (principal)
CPT/HCPCS: 73700

== ENCOUNTER 2023-04-16 11:04 | Observation (INO) | payer MEDICARE, SELFPAY ==
--- NOTE | 2023-03-24 07:07 | RAD_ITS ---
STUDY: X-RAY CHEST REASON FOR EXAM: Male, 72 years old. Preoperative evaluation. TECHNIQUE: Frontal and lateral views of the chest. COMPARISON: June 10, 2020 FINDINGS: Mild hyperinflation unchanged. There is no demonstrated pleural abnormality. Stable borderline cardiomegaly. Normal mediastinum and elio. Normal visualized pulmonary arteries. Normal visualized aortic arch and descending thoracic aorta. Thoracic osteopenia with diffuse mild thoracic spondylosis and slight increased kyphosis. Normal visualized ribs, clavicles, and shoulders. No abnormality of the visualized soft tissue structures of the upper abdomen. RAD/Chest PA and Lateral IMPRESSION: Stable borderline cardiomegaly with hyperinflation and no acute or active cardiopulmonary disease. Electronically Signed: Avinash Ventura MD at 12:22 EST ,
[2023-03-24 07:20] LABS: Absolute Lymphocyte Count 2.18 X10^3/uL (0.83-4.51); Absolute Neutrophil Count 3.9 X10^3/uL (2.0-7.7); Basophil# 0.08 X10^3/uL; Basophil% 1.1 % (0-1); Eosinophils% 2.9 % (0-5); Hematocrit 42.7 % (40-54); Lymphocyte # 2.18 X10^3/ul (0.83-4.51); Lymphocyte % 31.3 % (19-41); Mean Corp Hgb Conc 32.8 g/dL (32-36); Mean Corpuscular Hgb 31.5 pg (27.0-32.0); Mean Platelet Vol. 9.8 fl (6.2-12.0); Monocyte% 8.6 % (0-10); NRBC Flagged by Analyzer 0 % (0-5); Neutrophil # 3.87 X10^3/uL (2.7-7.7); Neutrophil % 55.7 % (47-70); Platelet Count 233 K/mm3 (150-450); RBC Distribution Width CV 14.1 % (11.6-14.6); RBC Distribution Width SD 49.1 fl (35.1-43.9); Red Blood Count 4.45 M/mm3 (4.6-6.2)
[2023-03-24 07:28] LABS: International Normalized Ratio 1.1; Prothrombin Time (Protime)PT. 14.2 SECONDS (11.7-14.9)
[2023-03-24 07:32] LABS: Partial Thromboplast Time 27.9 Seconds (24.1-36.2)
[2023-03-24 07:33] LABS: Anion Gap 4 (5-15); BUN 27 mg/dL (7-18); BUN/Creat Ratio 25.2 RATIO (10-20); Calcium,Total 9.4 mg/dL (8.5-10.1); Chloride 107 mmol/L (98-107); Creatinine, Serum 1.07 mg/dL (0.70-1.30); EST Glomerular Filtration Rate 72 mL/min (>60); Est Glom Filt Rate - Afr Amer 88 mL/min (>60); Glucose 180 mg/dL (74-106); Potassium 4.3 mmol/L (3.5-5.1); Sodium Level 139 mmol/L (136-145)
[2023-03-24 07:39] LABS: Hemoglobin A1c 6.4 % (3.8-5.6)
[2023-03-24 07:41] LABS: AST(SGOT) 28 U/L (15-37); Alanine Aminotransfer ALT/SGPT 39 U/L (16-61); Alkaline Phosphatase 72 U/L (45-117); Bilirubin, Direct 0.19 mg/dL (0.00-0.30); Globulin 3.7 g/dL (2.2-4.2); Magnesium 2.3 mg/dL (1.6-2.6); Protein, Total 7.7 g/dL (6.4-8.2)
[2023-04-16] VITALS (11 sets, daily range): BP systolic 121–151; BP diastolic 68–92; PULSE 79–102; RESP 14–18; TEMP 36.4–37.2; O2SAT 93–100; BMI 37.5
[2023-04-16] MEDS: Insulin Lispro 100 UNIT/ML INSULN.PEN SC (06:06)
[2023-04-16] MEDS: Acetaminophen 500 MG Tablet 1000 MG PO ×3 (06:08→21:57)
[2023-04-16] MEDS: Gabapentin 600 MG Tablet PO (06:08)
[2023-04-16] MEDS: Celecoxib 200 MG Capsule 400 MG PO (06:09)
[2023-04-16 06:14] LABS: Bedside Glucose 184 mg/dL (74-106)
[2023-04-16] MEDS: Lactated Ringers 1,000 ML 125 ML IV (06:23)
[2023-04-16] MEDS: Lactated Ringers 1,000 ML 999 ML IV (06:24)
[2023-04-16] MEDS: Magnesium 1 GM over 15 mins IV (06:30)
--- NOTE | 2023-04-16 07:30 | KNEE_PTH ---
PATIENT: CAYETANO BRIONES LOC: [facility] U#:[id number] AGE/SX: 72/M ROOM: [facility] [place] RE04/16/[address]: Dr. Saqib Canchola DO : 1950 BED: 1 DIS: 04/17/2023 SPEC #: [id number] RECD: 04/16/23 13:28 STATUS: JADON DEEAna Luisa #: [id number] JAY: 04/16/23 07:[address]: Saqib Canchola DEPT: SURGICAL PATHOLOGY RECD BY: Agustina Rios ENTERED: 04/16/23 13:29 SP TYPE: TOTAL KNEE OTHR DR: MD Dr. Cesar Galaviz DO Dr. Mark Tereletsky, DO Richard Dennis Tompkins, SIRI-C Tissues: Left knee Procedures: Decalcification bone/plaque Surgery Specimen Level IV HEADER OPERATION: JORDI, robotic assisted left total knee arthroplasty PRE-OP DIAGNOSIS: Osteoarthritis left knee TISSUE SUBMITTED: Left knee bone and tissue MICROSCOPIC DIAGNOSIS Bone and tissue of left knee, total knee resection: Severe degenerative joint disease. AM:sierra 04/22/2023 MICROSCOPIC DESCRIPTION Slides are reviewed. GROSS DESCRIPTION Received is one container designated bone and soft tissue left knee. The specimen consists of multiple fragments of gandhi-yellow bone measuring in aggregate 11.0 x 10.0 x 3.5 cm. Also in the specimen container is a piece of fibrocartilaginous tissue measuring 3.5 x 1.5 x 0.7 cm. A number of bony fragments contain articular surfaces consistent with tibial plateau and femoral condyle and displaying prominent osteophyte formation, eburnation and bone erosion. Forger Helper sections are submitted in two cassettes as follows: 1 - soft tissue, 2 - bone after decalcification. / SJ:sierra 04/16/2023 TC:5 CPT: 90194, 77487
[2023-04-16] MEDS: dexAMETHasone 10 MG/ML Vial IV (08:01)
[2023-04-16] MEDS: Cefazolin 3 GM in 0.9% Normal Saline (100mL Bag) 100 ML IV (08:01)
[2023-04-16] MEDS: TXA 1000mg in NS100 100ml (IVPB at Incision) 660 MG IV (08:15)
[2023-04-16] MEDS: TXA 1000mg in NS100 100ml (IVPB at Closure) 660 MG IV (09:49)
[2023-04-16] MEDS: JPS (Morphine 10mg/ml) OPERA.SITE (09:58)
[2023-04-16 11:10] LABS: Bedside Glucose 152 mg/dL (74-106)
--- NOTE | 2023-04-16 11:15 | OP.PCM_ITS ---
Report of Operation Date of Procedure: 04/16/23 Description of Surgical Findings:: Preoperative diagnosis: Left knee primary osteoarthritis Postoperative diagnosis: Left knee primary osteoarthritis Procedure: Cemented left total knee arthroplasty Surgeon: Saqib Canchola DO Rubber Curer: Ivet Grace PA-C Anesthesia: Spinal with sedation, adductor canal block Anesthesiologist: Dr. Mcdermott Complications: None apparent Drains: None Estimated blood loss: 50 cc Urinary output: None recorded IV fluids: 1500 cc crystalloid Specimens: Total knee resections Surgical implants: Rico triathlon X3 asymmetric patella size a 35 x 11 mm thickness, triathlon cruciate retaining femoral #7, primary tibial baseplate # 6, triathlon X3 tibial bearing insert CS 10 mm thickness Indications: This is a 72-year-old male seen in the outpatient setting diagnosed with left knee osteoarthritis with significant varus deformity. He failed nonoperative management with intra-articular corticosteroid injections, activity modification, bracing, [id number] analgesics. X-rays revealed grade 4 medial compartment changes. He also had significant patellofemoral arthritis. I recommended a left total knee arthroplasty. The risk, benefits, alternatives to procedure reviewed with patient at length and he agreed to proceed. Risks included but were not limited to bleeding, infection, loss of life or limb, need for additional surgery, persistent pain, intraoperative or postoperative fracture, instability, loosening of components, wound complications, stiffness, neurovascular injury, DVT or PE. Patient expressed understanding these risks and wished to proceed with surgery. Informed consent was obtained in the outpatient setting. Description of procedure: Patient was identified in the preoperative holding area by name, medical record number, and date of . Informed consent was confirmed with the patient. The operative knee was marked with a surgical marker. At time of his procedure, patient brought to the operative suite and positioned supine a standard operating table. Anesthesia then administered a spinal anesthetic. He was then repositioned in the supine position with all bony prominences well-padded. We then placed a well-padded pneumatic tourniquet on the left upper thigh. The left upper extremity was brought across patient's chest throughout the procedure. We then prepped and draped the left lower extremity in a normal, sterile orthopedic fashion. We performed a timeout with all parties in attendance in agreement with the side, site, operation be performed. No concerns were voiced and would like to proceed with surgery. 3 g Ancef was administered prior to the incision by anesthesia staff as well as 1 g IV TXA. First I exsanguinated the left lower extremity with a Esmarch bandage. Tourniquet was inflated to 280 mmHg, which remained up for approximately 70 minutes. Esmarch was removed. I planned a standard midline approach to the left knee approximately 15 cm in length. Skin was sharply incised with a 10 blade scalpel developing full-thickness layers down to the retinaculum. Layers were developed identifying the VMO. I then planned a standard medial parapatellar arthrotomy performed in flexion. The anterior horn of the medial meniscus was released. Hoffa's fat pad was then released. I then everted the patella in extension and brought the knee into 90 degrees of flexion. The anterior horn of the lateral meniscus was then released. The ACL was split in its mid substance with a 10 blade. We then brought the knee back into extension. I measured the outer diameter of the patella to be approximately 46 mm, a patellar reamer was then selected. I measured the thickness of the patella to be 26 mm. I then reamed the patella to a depth of approximately 16 mm. A protective baseplate was then placed on the patella. I then placed pins in the metaphyseal distal femur medial to lateral for the Edis arrays. In similar fashion, I made a 2 cm incision approximately a handsbreadth distal to the tibial tubercle along the medial aspect of the tibia, drilling 2 bicortical pins for the tibial array. The knee was brought into flexion. The patella was subluxed laterally but not everted. Medial lateral retractors were placed. We then utilized the [employer] software to confirm our planned surgical procedure and oriented with the patient's osseous anatomy. All checks with the [employer] system were confirmed. Patient had a significant fixed varus deformity after performing stress examination utilizing the [employer] software. We elected to place the tibial baseplate in approximately 2 degrees of varus to allow for appropriate balancing. Sawblade was then brought in. I first started with the tibial cut, ensuring protection of the MCL and patellar tendon. A tibial wafer was then excised. I then proceeded to make the posterior femoral, anterior, anterior chamfer cuts with the same blade. Ligaments were protected with [employer] retractors. Sawblade was then exchanged to perform the distal femoral and posterior chamfer cuts. The robot was then removed from the surgical field. Remaining loose bone and meniscus was excised carefully. Posterior osteophytes were removed from the distal femur with a curved osteotome and rongeur. Trial components were then placed with a 10 mm polyethylene. Balance was excellent in both extension and 90 degrees flexion. No mid flexion instability was apparent. I then drilled for a size 35 patella. Patella was trialed. Tracking was excellent. We then marked for tibial baseplate. Distal femoral pegs were drilled. Tibial keel was punched. Trials were removed. Periarticular block was administered. The wound was copiously irrigated with normal saline solution. Simplex cement was then mixed on the back table. Components were then cemented in place with excess cement being removed. Cement was allowed to cure with the components in full extension utilizing a 10 mm trial polyethylene component. While the cement was curing, Betadine solution was irrigated into the wound and the wound edges. After cement had cured fully, trial polyethylene was removed. Tourniquet was deflated. Hemostasis was excellent. An additional 1 g TXA was administered IV. I selected a size 10 mm polyethylene which was placed and impacted per customer service supervisor recommendations. Final components appeared very well balanced with excellent range of motion. There is no significant remaining flexion contracture. The wound was copiously irrigated with normal saline solution. Capsule was closed watertight with #1 strata fix barbed suture. Deeper bursal layer was reapproximated with 0 Vicryl suture. Dermis was reapproximated buried interrupted 2-0 Vicryl suture. Skin was finally reapproximated tyler. Patient tolerated the procedure well without apparent complication. He was safely awakened in the operative suite, transferred to his hospital bed and subsequently to PACU in stable condition. Need for skilled dental assistant medical assistant: Ivet Grace PA-C was critical to the outcome of the case. During the course of the procedure the physician dental assistant medical assistant played a vital role. Her intimate knowledge of my steps in the procedure aided in safe and expedient completion of the procedure. The PA played a vital role in positioning particularly in obtaining the appropriate positioning. The PA was also vital in the retraction of soft tissues during the exposure and projecting vital structures. The PA was also vital and protecting soft tissues during times of bony cuts. She also played a vital role in closure with my direct supervision. The PA was also important during reduction and dislocation of the joint and trials intraoperatively. Post Operative Plan: Patient will be placed in observation overnight due to multiple comorbidities, medical monitoring and early convalescence. Weightbearing: Range of motion and weightbearing as tolerated left lower extremity. Antibiotics: Ancef 1 g every 8 hours x 3 doses DVT Prophylaxis: Aspirin 81 mg twice daily starting postoperative day #1 Irizarry: None Dressing: Maintain silver dressing x7 days X-Rays: 2-week x-rays in the office. Follow-up: 2 weeks in my office for staple removal
[2023-04-16] MEDS: Cefazolin 1 GM/50 ML BAG IV ×2 (15:49→23:20)
--- NOTE | 2023-04-16 16:31 | NURSING ---
PT was working with pt and his knee started to bleed trough dressing, when this RN took a look it was covered in blood on 3 sides so a new silver dressing was applied along with new thigh high mary hose and an kumar wrap.
[2023-04-16] MEDS: Senna/Docusate Sodium 1 Tablet 2 TABLET PO (21:57)
[2023-04-16] MEDS: Atorvastatin Calcium 10 MG Tablet PO (21:57)
[2023-04-17 03:45] VITALS: BP 153/94; PULSE 100; RESP 16; TEMP 36.7; O2SAT 98
[2023-04-17] MEDS: Acetaminophen 500 MG Tablet 1000 MG PO (05:21)
--- NOTE | 2023-04-17 07:52 | PCM.PN.ORT ---
Subjective Subjective Patient seen and examined. Denies any new complaints. Tolerating oral intake without nausea or vomiting. Urinating without difficulty. Patient has been ambulating across the room with a walker. He is anxious to be discharged home. He denies any fevers, chills, chest pain or shortness of breath. Sanguinous drainage was noted on the incisional dressing and changed by nursing staff last evening. Objective Data Objective Data Vital Signs: Vital Signs Temp Pulse Resp BP Pulse Ox O2 Del Method O2 Flow Rate 98.1 F 100 16 153/94 H 98 Room Air 2 04/17/23 03:45 04/17/23 03:45 04/17/23 03:45 04/17/23 03:45 04/17/23 03:45 04/17/23 03:45 04/16/23 12:17 Oxygen Flow Rate (L/min) 2 Oxygen Delivery Method Room Air Weight: 277 lb Body Mass Index (BMI) 37.5 Intake & Output: Intake and Output for Last 24 Hours 04/15/23 04/16/23 04/17/23 23:59 23:59 23:59 Intake Total 4537 / 4537 Output Total 800 / 800 Balance 4537 / 4137 -800 / -800 Lab / Micro Data 03/24/23 07:01 03/24/23 07:01 Labs: Laboratory Results - last 24 hr 04/16/23 10:51: POC Glucose 152 H Micro: Microbiology 03/24/23 07:01 Nasal Secretion Nasal Screen MRSA/MSSA - Final Physical Exam Narrative General - A&Ox3, NAD. VSS/AF Left lower extremity -incisional dressing shows sanguinous drainage in the midportion of the incision, otherwise clean dry and intact. SILT Sural, Saphenous, SPN, DPN, Tibial N. distributions. DP, PT 2+. BCR. DF, PF, EHL 5/5. No calf TTP. Assessment & Plan Assessment/Plan (1) Postoperative pain: PLAN: POD#1 s/p left robotic arm assisted total knee arthroplasty - Pain control - Medicine consult pending - PT/OT -range of motion, weight-bear as tolerated left lower extremity - DVT PPX -aspirin 81 mg twice daily, SCDs, MAR hose, early mobilization - Due to patient's history of diabetes and obesity plan is for for extended antibiotic prophylaxis upon discharge x 14 days doxycycline - Case management - D/C planning
--- NOTE | 2023-04-17 07:55 | PCM.DC.SUM ---
Providers Date of Admission: 04/16/23 Primary Care Physician: Dariel Reyna, OIL AND GAS SPECIALIST-C Consultations 04/16/23 10:47 Consult: Hospitalist Routine Consulting Provider: Ronni Duarte Reason for Consult: S/p left total knee replacement, medical management EMERGENT Consult: No MD Notified: Yes Date Notified: 04/16/23 Time Notified: 12:21 Method of Notification: via spok Reason For Visit: ROBOTIC ASSISTED LEFT TOTAL KNEE AR Diagnosis Discharge Diagnosis (1) Postoperative pain: Status: Acute Code(s): G89.18 - Other acute postprocedural pain Plan: POD#1 s/p left robotic arm assisted total knee arthroplasty - Pain control - Medicine consult pending - PT/OT -range of motion, weight-bear as tolerated left lower extremity - DVT PPX -aspirin 81 mg twice daily, SCDs, MAR gupta, early mobilization - Due to patient's history of diabetes and obesity plan is for for extended antibiotic prophylaxis upon discharge x 14 days doxycycline Medications at Discharge Home Medications cinnamon bark 500 mg capsule 1,000 mg PO BID supplement 06/10/20 finasteride 5 mg tablet 5 mg PO DAILY prostate 06/10/20 losartan 100 mg-hydrochlorothiazide 12.5 mg tablet 1 ea PO DAILY blood pressure 06/10/20 metformin 500 mg tablet,extended release 24 hr 750 mg PO DAILY diabetes 06/10/20 omega-3 fatty acids-fish oil 340 mg-1,000 mg capsule 1 ea PO DAILY supplement 06/10/20 simvastatin 20 mg tablet 20 mg PO QHS cholesterol 06/10/20 cholecalciferol (vitamin D3) 25 mcg (1,000 unit) capsule 25 mcg PO DAILY supplement 07/06/20 naproxen 500 mg tablet 500 mg PO Q12H PRN inflamation 07/06/20 omeprazole 40 mg capsule,delayed release 40 mg PO DAILY GERD 07/06/20 zinc gluconate 50 mg tablet 50 mg PO QODAY supplement 07/06/20 acetaminophen 500 mg tablet 1,000 mg (2 x 500 mg) PO Q8 30 days #180 tabs 04/17/23 aspirin 81 mg chewable tablet 81 mg PO BID 6 weeks #84 tabs 04/17/23 doxycycline hyclate 100 mg tablet 100 mg PO BID 14 days #28 tabs 04/17/23 meloxicam 7.5 mg tablet 7.5 mg PO BID 30 days #60 tabs 04/17/23 oxycodone 5 mg tablet 5 - 10 mg (1 - 2 x 5 mg) PO Q4H PRN PRN Pain Score 4-10 7 days #42 tabs 04/17/23 sennosides 8.6 mg-docusate sodium 50 mg tablet (Stool Softener-Stimulant Laxative) 2 tab PO BID 7 days #28 tabs 04/17/23 Hospital Course Summary of Care Provided Minutes Spent on Discharge: 15 Hospital Course: Patient underwent uncomplicated left total knee arthroplasty with robotic arm assistance. He was placed in observation overnight for early convalescence, medical monitoring. No medical or surgical complications were encountered during his stay. An internal medicine consult was placed for medical management. Patient worked well with physical and occupational therapies. He was able be safely discharged to home on postoperative day #1. Physical Exam Narrative General - A&Ox3, NAD. VSS/AF Left lower extremity -incisional dressing shows sanguinous drainage in the midportion of the incision, otherwise clean dry and intact. SILT Sural, Saphenous, SPN, DPN, Tibial N. distributions. DP, PT 2+. BCR. DF, PF, EHL 5/5. No calf TTP. Weight / BMI Weight Weight: 277 lb Body Mass Index (BMI) 37.5 ABG / Lab / Microbiology Data 04/17/23 07:50 04/17/23 07:50 Laboratory: Laboratory Results - last 24 hr 04/16/23 10:51: POC Glucose 152 H Microbiology: Microbiology 03/24/23 07:01 Nasal Secretion Nasal Screen MRSA/MSSA - Final Meaningful Use Info Meaningful Use Diagnoses (Choose all that apply): None applicable Discharge Plan Admission Admit Date/Time: 04/16/23 11:04 Primary Reason for Your Visit: Left total knee arthroplasty Attending Provider: Saqib Canchola Primary Care Provider: Dariel Reyna OIL AND GAS SPECIALIST Consulting Providers: Cesar Silverio; Sulaiman Mcdermott; Ronni Duarte Instructions Additional Instructions / Restrictions: Follow preprinted instructions from your surgeons office. Outpatient physical therapy to start 04/20/2023 Discharge Orders/Prescriptions Prescriptions: New acetaminophen 500 mg Tablet 1,000 mg PO Q8 30 Days Qty: 180 0RF aspirin 81 mg Tablet,Chewable 81 mg PO BID 42 Days Qty: 84 0RF meloxicam 7.5 mg Tablet 7.5 mg PO BID 30 Days Qty: 60 0RF oxycodone 5 mg Tablet 5 - 10 mg PO Q4H PRN PRN (Reason: Pain Score 4-10) 7 Days Qty: 42 0RF sennosides-docusate sodium [Stool Softener-Stimulant Laxat] 8.6-50 mg Tablet 2 tab PO BID 7 Days Qty: 28 0RF doxycycline hyclate 100 mg tablet 100 mg PO BID 14 Days Qty: 28 0RF Continued simvastatin 20 MG tablet 20 mg PO QHS metformin 500 MG tablet extended release 24 hr 750 mg PO DAILY finasteride 5 MG tablet 5 mg PO DAILY cinnamon bark 500 MG capsule 1,000 mg PO BID losartan-hydrochlorothiazide 1 EACH tablet 1 ea PO DAILY omega-3 fatty acids-fish oil 1 EACH capsule 1 ea PO DAILY omeprazole 40 MG capsule,delayed release(DR/EC) 40 mg PO DAILY zinc gluconate 50 MG tablet 50 mg PO QODAY naproxen 500 MG tablet 500 mg PO Q12H PRN (Reason: inflamation) cholecalciferol (vitamin D3) 25 MCG capsule 25 mcg PO DAILY Discontinued aspirin 81 MG tablet,chewable 81 mg PO DAILY@0800 Patient Comments: last dose on 07/05/20 for surgery on 07/13/[address] Owens's instructions Referrals / Follow Up: Saqib Canchola DO [Med Staff - Active Staff] - Dariel Reyna OIL AND GAS SPECIALIST, OIL AND GAS SPECIALIST-C [Primary Care Provider] - Disposition Disposition (needs filled in before D/C Order can be placed): Home, Self Care
[2023-04-17 08:06] VITALS: BP 171/91; PULSE 83; RESP 18; TEMP 36.6; O2SAT 97
[2023-04-17 08:15] LABS: Hematocrit 37.6 % (40-54); Hemoglobin 12.4 g/dL (13.0-16.5); Mean Corpuscular Hgb 31.5 pg (27.0-32.0); Mean Corpuscular Volume 95.4 fL (80-94); Mean Platelet Vol. 9.8 fl (6.2-12.0); Platelet Count 218 K/mm3 (150-450); RBC Distribution Width CV 13.8 % (11.6-14.6); RBC Distribution Width SD 48.2 fl (35.1-43.9); Red Blood Count 3.94 M/mm3 (4.6-6.2); White Blood Count 14.6 K/mm3 (4.4-11.0)
[2023-04-17] MEDS: Finasteride 5 MG Tablet PO (08:15)
[2023-04-17] MEDS: Losartan Potassium 100 MG Tablet PO (08:16)
[2023-04-17] MEDS: hydroCHLOROthiazide 12.5mg 12.5 MG PO (08:16)
[2023-04-17] MEDS: Pantoprazole Sodium 40 MG Tablet PO (08:16)
[2023-04-17] MEDS: Senna/Docusate Sodium 1 Tablet 2 TABLET PO (08:16)
[2023-04-17] MEDS: Aspirin 81 MG TAB.CHEW PO (08:16)
[2023-04-17 08:37] LABS: Anion Gap 3 (5-15); BUN 22 mg/dL (7-18); BUN/Creat Ratio 20.8 RATIO (10-20); Calcium,Total 9.3 mg/dL (8.5-10.1); Chloride 108 mmol/L (98-107); Creatinine, Serum 1.06 mg/dL (0.70-1.30); EST Glomerular Filtration Rate 73 mL/min (>60); Est Glom Filt Rate - Afr Amer 89 mL/min (>60); Estimated Creatinine Clearance 71.17 ml/min; Glucose 169 mg/dL (74-106); Potassium 4.3 mmol/L (3.5-5.1); Sodium Level 139 mmol/L (136-145)
--- NOTE | 2023-04-17 10:35 | CASEMGMT ---
AXEL JURADO Assessment: Face to Face with pt for initial transition planning/care coordination assessment. AXEL JURADO introduced self and role at [facility], pt voices understanding and consents to assessment. Pt is A&O x4 and answers all questions appropriately at this time. Pt sitting up in chair in no distress. Care providers, pharmacy, and demographics verified/updated. Admitting Dx: L TKR PCP:Dariel Reyna NP Specialists:ester Canchola Pharmacy: [facility], pt requested to have rx delivered to room. TC to Retail pharmacy, cost of meds are $3.58. Prabhakar is aware that pt would like delivered to room and will pay ventura. Insurance: [employer] [facility] Prescription Benefit: yes LNOK: Carleen Mitchell, ; Carlos Mitchell, brother Living Arrangements: Pt lives with in a single story home with 3 steps to enter with a rail. Pt reports he was I in ADL's and denies concerns at home. Transportation: Pt drives self and denies concerns with transportation. Pt or brothers will transport pt to medical appts until pt can drive again. DME:walk in shower with built in seat, FWW, raised toilet seat, [facility] HHC/SNF: Denies hx of Pt states no concerns with going home at time of dc. He has outpt therapy set up at [facility] on 04/20. Pt states no further concerns/needs. CM to follow. Advised pt to ask CM if any further question/concerns/needs arise, voices understanding. Pt Goal: Home with outpt therapy already set up Plan: Home with outpt therapy already set up
== END 2023-04-17 11:00 | disposition home or self-care (01) ==
LOC: SDC 12:01 → MS3 12:01
PROVIDERS: Anesthesiology; Admitting Provider Student in an Organized Health Care Education/Training Program; PCP Nurse Practitioner Family; Referring Provider Student in an Organized Health Care Education/Training Program; Visit Provider Student in an Organized Health Care Education/Training Program
PROC: 0SRD0JZ Replacement of Left Knee Joint with Synthetic Substitute, Open Approach (ICD-10-PCS; CPT 27447; principal; 2023-04-16 07:00)
DX: M17.12 Unilateral primary osteoarthritis, left knee (principal); E11.9 Type 2 diabetes mellitus without complications; M21.162 Varus deformity, not elsewhere classified, left knee; Z79.899 Other long term (current) drug therapy; Z79.84 Long term (current) use of oral hypoglycemic drugs; Z79.82 Long term (current) use of aspirin; I10 Essential (primary) hypertension; E78.00 Pure hypercholesterolemia, unspecified; Z87.891 Personal history of nicotine dependence; E66.8 Other obesity; Z68.37 Body mass index [BMI] 37.0-37.9, adult; K21.9 Gastro-esophageal reflux disease without esophagitis; R23.3 Spontaneous ecchymoses
CPT/HCPCS: 27447; S2900; 01402; 64447; 36415; 71046; 80048; 80076; 82962; 83036; 83735; 85025; 85027; 85610; 85730; 87081; 88305; 88311; 93005; 94668; 96361; 96365; 96366; 97162; 97166; 97530; 99221; C1776; J7120; G0378; J2405; J3475

== ENCOUNTER → 2024-02-18 | Outpatient (CLI) | payer MEDICARE, SELFPAY ==
--- NOTE | 2024-02-18 13:03 | CT_ITS ---
STUDY: CT CHEST WITH CONTRAST REASON FOR EXAM: Male, 73 years old. CP RADIATION DOSAGE (If Supplied By Facility): CTDIvol = ( 52.56 ) mGy, DLP = ( 2799.97 ) mGycm TECHNIQUE: Transaxial imaging was performed following intravenous administration of 80 mL of Isovue-370.. Cardiac over read examination. Individualized dose optimization techniques were used for this CT. COMPARISON: Comparison is made with prior study dated October 15, 2018. FINDINGS: CHEST The lungs are normal. There is no demonstrated pleural abnormality. There are calcifications of the coronary arteries. There are small lymph nodes within the mediastinum, which are normal in size and morphology most compatible with reactive lymph hyperplasia. Normal hilar regions. Normal unenhanced pulmonary arteries. There is atherosclerotic calcification of the aortic arch. Normal osseous structures. Fatty infiltration of the liver. Persistent 5.2 centimeters by 4.4 cm soft tissue mass with peripheral calcification most likely arising from the right adrenal gland. This is unchanged. CT/Limited Chest CT Cardiac Only IMPRESSION: Coronary calcification. Stable partially calcified mass in the right adrenal gland. Fatty infiltration of the liver. Electronically Signed: Andrés Schmitt MD at 9:50 EDT ,
[2024-02-18 13:12] VITALS: BP 152/72; PULSE 67; RESP 16; TEMP 36.3; O2SAT 96; BMI 38.0
[2024-02-18 13:36] LABS: CREATININE FINGERSTICK < 1.0 mg/dL (0.70-1.30); EGFR FINGERSTICK > 60.0000 mL/min (>60)
[2024-02-18 13:58] VITALS: BP 168/82; PULSE 67
[2024-02-18] MEDS: Nitroglycerin SL (ED/IMG/CATH) 0.4 MG TABLET SL (13:58)
[2024-02-18] MEDS: 0.9% Saline Lock 10 ML Syringe IV (13:59)
[2024-02-18 14:13] VITALS: BP 168/82
--- NOTE | 2024-02-19 11:50 | CA.SCORE ---
Calcium Scoring Date of Study:: 02/19/24 Indications Indications: Chest pain Coronary Calcium Scoring: High-resolution Computed Tomographic imaging of the chest was performed on [02/18/2024], with particular attention paid to the coronary arteries. Images from the examination were analyzed for the presence and extent of coronary artery calcification , using coronary calcium quantification software. The patient was also administered intravenous contrast for delineation of the coronary anatomy. The patient tolerated the procedure well and there were no complications. The results of the coronary calcification analysis as well as the coronary anatomy are provided below. The images were noted to be suboptimal. Findings Coronary Artery Left Main (LM): 36 Left Anterior Descending (LAD): 434 Left Circumflex (LCX): 195 Right Coronary Artery (RCA): 209 Total Agatston Score: 874 Percentile Rankin-75 Calcium Scoring Interpretation: Different methods to categorize the overall amount of coronary plaque. Overall amount CAC SIS Visual of coronary plaque P1 Mild -100 <2 1-2 vessels with mild amount of plaque P2 Moderate 101-300 3-4 1-2 vessels with moderate amount, 3 vessels with mild amount of plaque P3 Severe 301-999 5-7 3 vessels with moderate amount, 1 vessel with severe amount of plaque P4 Extensive >1000 >8 2-3 vessels with severe amount of plaque Calcium Score: Severe: 3 vessels w/moderate amount, 1 vessel w/severe amt of plaque Conclusion: Left main coronary artery arose from the left coronary cusp with mild calcification The left anterior descending artery had an area of calcification in the proximal region and then mild diffuse disease was noted. The calcification in the left anterior descending artery precludes exact delineation of stenosis The left circumflex artery was suboptimally visualized but appeared to have mild calcification and no high-grade stenosis The right coronary artery was dominant arising from the right coronary cusp and had distal calcification and moderate stenosis
== END | disposition home or self-care (01) ==
PROVIDERS: PCP Nurse Practitioner Family; Referring Provider Internal Medicine Cardiovascular Disease; Visit Provider Internal Medicine Cardiovascular Disease
DX: R07.9 Chest pain, unspecified (principal)
CPT/HCPCS: 75571; 75574; 76380

== ENCOUNTER → 2024-08-04 | Outpatient (CLI) | payer MEDICARE, SELFPAY ==
--- NOTE | 2024-08-04 06:47 | ECHOCS_ITS ---
Reason For Study Reason For Study: ILL DEFINED HEART DISEASE Procedure This was a 2D Doppler, Color Flow transthoracic echocardiogram. The study was technically difficult. Due to body habitus. Contrast injection was performed. Exam performed in department. Left Ventricle Normal size and thickness. The left ventricular ejection fraction is 65 %. Normal diastology for age. Right Ventricle Normal right ventricle. Atria The left and right atria are normal. Tricuspid Valve The tricuspid valve is not well visualized. Aortic Valve Trisinus/trileaflet aortic valve. Pulmonic Valve The pulmonic valve is not well visualized. Great Vessels Mildly dilated aortic root. Pericardium/Pleural No pericardial effusion. Medication 20 gauge I.V. with prn adaptor inserted into right arm. Diluted definity 3.0ml given slow IV push to enhance endocardial definition. MMode/2D Measurements & Calculations LVIDd: 4.7 cm IVSd: 1.3 cm Ao root diam: 4.2 cm LVIDs: 3.1 cm LVPWd: 1.3 cm RVDd: 3.1 cm FS: 33.8 % LAV(MOD-sp4): 86.0 ml LVAd ap4: 31.3 cm2 LVAd ap2: 28.7 cm2 LVLd ap4: 8.7 cm LVLd ap2: 8.4 cm EDV(MOD-sp4): 91.6 ml EDV(MOD-sp2): 83.7 ml EDV(sp4-el): 95.3 ml EDV(sp2-el): 83.6 ml LVAs ap4: 20.6 cm2 LVAs ap2: 17.7 cm2 LVLs ap4: 7.9 cm LVLs ap2: 7.0 cm ESV(MOD-sp4): 44.2 ml ESV(MOD-sp2): 37.6 ml ESV(sp4-el): 45.6 ml ESV(sp2-el): 38.1 ml EF(MOD-sp4): 51.8 % EF(MOD-sp2): 55.0 % EF(sp4-el): 52.2 % SV(MOD-sp4): 47.4 ml SV(MOD-sp2): 46.1 ml SV(sp4-el): 49.7 ml SI(MOD-sp4): 19.0 ml/m2 SI(MOD-sp2): 18.5 ml/m2 LA A4 area: 26.9 cm2 LA dimension(2D): 3.6 cm RA A4 area: 18.9 cm2 TAPSE: 2.8 cm Time Measurements MV dec time: 0.23 sec Doppler Measurements & Calculations MV E max brandon: 69.4 cm/sec Lat Peak E' Brandon: 11.4 cm/sec Med Peak E' Brandon: 9.0 cm/sec MV A max brandon: 83.6 cm/sec E/E' lat: 6.1 E/E' med: 7.7 MV E/A: 0.83 MV V2 max: 86.1 cm/sec MV P1/2t max brandon: 74.7 cm/sec Ao V2 max: 148.2 cm/sec MV max P.0 mmHg MV P1/2t: 59.2 msec Ao max P.8 mmHg MV V2 mean: 56.5 cm/sec Ao V2 mean: 105.7 cm/sec MV mean P.4 mmHg MV dec slope: 370.0 cm/sec2 Ao mean P.9 mmHg MV V2 VTI: 17.5 cm MVA(P1/2t): 3.7 cm2 Ao V2 VTI: 30.2 cm AV (velocity ratio): 0.74 LV V1 max: 92.4 cm/sec PA V2 max: 92.3 cm/sec TR max brandon: 206.6 cm/sec LV V1 max P.4 mmHg PA V2 mean: 67.1 cm/sec TR max P.1 mmHg LV V1 mean P.2 mmHg LV V1 mean: 71.0 cm/sec LV V1 VTI: 22.3 cm ECHO/Echo Complete W/ Contrast Interpretation Summary The study was technically difficult. The left ventricular ejection fraction is 65 %. Mildly dilated aortic root. Ordering Physician: Susi Sosa Referring Physician: Dariel Reyna Performed By: Oneida Campos RDCS, RVT
== END | disposition home or self-care (01) ==
PROVIDERS: PCP Nurse Practitioner Family; Referring Provider Internal Medicine Cardiovascular Disease; Visit Provider Internal Medicine Cardiovascular Disease
DX: I51.89 Other ill-defined heart diseases (principal)
CPT/HCPCS: 93306; Q9957; A4216; C8929